=== PATIENT | female | born 1995 | race Two or more races ===

== ENCOUNTER 2024-02-13 18:04 | Emergency (ER) | payer MEDICAID, OTHER ==
[~2024-02-13] VITALS: Ht 162.6 cm; Wt 68.2 kg
[2024-02-13] MEDS ORDERED: CYCL-614 PO (22:42)
[2024-02-13] MEDS ORDERED: ACET500T58 PO (22:42)
[2024-02-13 23:00] VITALS: BP 130/64; PULSE 80; RESP 18; TEMP 98.4; O2SAT 98
== END 2024-02-13 23:10 | disposition home or self-care (01) ==
LOC: ER 18:04 → EDBD 18:04 → ER 23:10
DX: S39.012A Strain of muscle, fascia and tendon of lower back, initial encounter (principal); S80.02XA Contusion of left knee, initial encounter; S80.211A Abrasion, right knee, initial encounter; Z98.890 Other specified postprocedural states; Z79.899 Other long term (current) drug therapy; W01.0XXA Fall on same level from slipping, tripping and stumbling without subsequent striking against object, initial encounter; Y93.01 Activity, walking, marching and hiking; Y92.481 Parking lot as the place of occurrence of the external cause; Y99.8 Other external cause status